=== PATIENT | female | born 1960 | race Caucasian/White ===

== ENCOUNTER 2018-06-27 06:00 | Day surgery (SDC) | payer OTHER ==
[2018-06-26 16:13] LABS: BASOPHILS 0.1 % (0-2); EOSINOPHILS 2.8 % (0-7); HEMATOCRIT 41.2 % (36.0-48.0); HEMOGLOBIN 14.3 g/dL (12-16); IMMATURE GRANULOCYTES 0.3 % (0-5); LYMPHOCYTES 34.8 % (15-50); MCH 33.4 pg (26.0-34.0); MCHC 34.7 g/dL (31.0-37.0); MCV 96.3 fL (80.0-100.0); MEAN PLATELET VOLUME 9.8 fL (7.4-10.4); MONOCYTES 5.8 % (2-11); NEUTROPHILS 56.2 % (40-80); PLATELET COUNT 255 10x3/uL (130-400); RBC 4.28 10x6/uL (4.00-5.40); RDW 12.7 % (11.5-14.5); WBC 9.4 10x3/uL (4.8-10.8)
[2018-06-26 16:25] LABS: APTT 25.7 SECONDS (22.8-39.4); CALC OSMOLALITY 284 mosm/kg (275-300); CALCIUM 8.9 mg/dL (8.5-10.1); CARBON DIOXIDE 28.1 mmol/L (21.0-32.0); CHLORIDE - SERUM 98 mmol/L (98-107); CREATININE - SERUM 0.8 mg/dL (0.6-1.3); GLUCOSE 323 mg/dL (74-106); INR 0.91 (0.85-1.17); POTASSIUM - SERUM 4.3 mmol/L (3.5-5.1); PROTIME 11.8 SECONDS (11.6-15.0); SODIUM 136 mmol/L (136-145); UREA NITROGEN 14 mg/dL (7-18); eGFR NON AFRICAN AMERICAN 78 mL/min (90-120)
[~2018-06-27] VITALS: Ht 162.6 cm; Wt 57.2 kg
--- NOTE | ~2018-06-27 | OP ---
PATIENT NAME: SHADE BALDWIN MEDICAL RECORD: [id number] :64 LOCATION:[facility] ADMISSION DATE: SURGEON: OSCAR ALAS MD DATE OF OPERATION: 06/27/2018 PREOPERATIVE DIAGNOSES: 1. Ductal carcinoma in situ of the left breast. 2. Hypercholesterolemia. 3. Diabetes mellitus. 4. Tobacco dependence syndrome. POSTOPERATIVE DIAGNOSES: 1. Ductal carcinoma in situ of the left breast. 2. Hypercholesterolemia. 3. Diabetes mellitus. 4. Tobacco dependence syndrome. PROCEDURES: 1. Needle local left breast lumpectomy. 2. Left axillary sentinel lymph node biopsy. SURGEON: Oscar Alas MD REPORT OF PROCEDURE: The patient's left breast and axilla were prepped and draped in sterile fashion. Preoperatively, the patient had undergone lymphoscintigraphy and needle localization. A skin incision was made on the lateral aspect of the nipple areolar complex. Electrocautery was used to dissect through the subcutaneous tissues until we encountered the wire. The wire was cut and brought through the incision. We followed the wire taking a large core tissue from the left lower outer quadrant. We continued this dissection down to the pectoral fascia and out laterally and anteriorly to just under the skin. The wire was removed intact and this piece of specimen was marked appropriately and sent off to mammography. This showed that the biopsy clip and the wire were intact in the specimen. We then inspected the area and irrigated out with sterile water. Any bleeding that was found was treated with electrocautery. A lap pad was placed into the wound. At this point, we approached the left axilla. A small skin incision was made on the inferior aspect of the axilla and electrocautery was used to dissect through the subcutaneous tissues. We pulled up the axillary tissue and using a Neoprobe, we were able to localize the sentinel lymph node. This had a reading of 1200. The lymph node was removed and sent off for permanent specimen. We inspected the remainder of the axilla and found no other lymph nodes that required removal. We then irrigated out this wound and reapproximated the subcutaneous tissues and the subcutaneous tissues of the breast incision were then reapproximated with interrupted 3-0 Vicryls as well. A total of 10 mL of 0.25% Marcaine with epinephrine was infused into the surrounding tissues and the skin incisions were closed with running subcutaneous 5-0 Monocryl. COMPLICATIONS: None. CONDITION: Stable. ANESTHESIA: General endotracheal and local. BLOOD LOSS: Minimal. OPERATIVE REPORT [id number] SHADE BALDWIN TRANSINT:[id number] Voice Confirmation ID: [id number] DOCUMENT ID: [id number] OSCAR ALAS MD CC: [id number] DICTATION DATE: 06/27/18 1245 [employer] SALES EXECUTIVE: 06/27/18 1307 DEP SDC 06/27/18 [place] [id number]
[~2018-06-27 06:00] MED LIST: METFORMIN HCL500 M1 PO
[2018-06-27 08:12] VITALS: BP 126/64; Ht 162.6 cm; Wt 57.2 kg
[2018-06-27] MEDS ORDERED: DILAUDID2 MG PO (12:45)
== END 2018-06-27 14:20 | disposition home or self-care (01) ==
LOC: D.OPS 06:00 → D.PAN 08:00 → D.OPS 08:00 → D.NM 08:00 → D.OPS 14:20
PROVIDERS: Anesthesiology; ATTEND Surgery
DX: D05.12 Intraductal carcinoma in situ of left breast (principal); E78.00 Pure hypercholesterolemia, unspecified; E11.9 Type 2 diabetes mellitus without complications; F17.200 Nicotine dependence, unspecified, uncomplicated; Z01.812 Encounter for preprocedural laboratory examination